=== PATIENT | male | born 2000 | race African-American/Black ===

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

== ENCOUNTER 2019-09-04 20:00 | Emergency (ER) | payer OTHER ==
[~2019-09-04] VITALS: Ht 190.5 cm; Wt 136.1 kg
== END 2019-09-04 22:29 ==
LOC: ED 20:00
DX: S80.01XA Contusion of right knee, initial encounter (principal); I10 Essential (primary) hypertension; W17.89XA Other fall from one level to another, initial encounter; Y93.89 Activity, other specified; Y92.098 Other place in other non-institutional residence as the place of occurrence of the external cause; Y99.8 Other external cause status

== ENCOUNTER 2020-01-15 20:46 | Emergency (ER) | payer OTHER ==
[~2020-01-15] VITALS: Ht 190.5 cm; Wt 136.1 kg
== END 2020-01-15 21:22 | disposition home or self-care (01) ==
LOC: ED 20:46
DX: J06.9 Acute upper respiratory infection, unspecified (principal)

== ENCOUNTER 2021-01-01 05:10 | Emergency (ER) | payer OTHER ==
[2021-01-01] MEDS ORDERED: VIBRAMYCIN100 MG PO (06:00)
== END 2021-01-01 06:03 | disposition home or self-care (01) ==
LOC: ED 05:10
DX: S70.362A Insect bite (nonvenomous), left thigh, initial encounter (principal); I10 Essential (primary) hypertension; F41.9 Anxiety disorder, unspecified; W57.XXXA Bitten or stung by nonvenomous insect and other nonvenomous arthropods, initial encounter; Y93.89 Activity, other specified; Y92.89 Other specified places as the place of occurrence of the external cause; Y99.8 Other external cause status

== ENCOUNTER → 2021-01-03 | Outpatient (CLI) | payer OTHER ==
[~2021-01-03] MED LIST changes: +VIBRAMYCIN100 MG PO
== END | disposition home or self-care (01) ==
LOC: LAB 16:41
PROVIDERS: ATTEND Internal Medicine
DX: R21 Rash and other nonspecific skin eruption (principal)

== ENCOUNTER 2021-08-11 15:40 | Emergency (ER) | payer OTHER ==
[~2021-08-11] VITALS: Wt 117.9 kg
[2021-08-11] MEDS ORDERED: CEPHALEXIN500 M1 PO (16:06)
== END 2021-08-11 16:57 | disposition home or self-care (01) ==
LOC: ED 15:40
DX: S91.332A Puncture wound without foreign body, left foot, initial encounter (principal); W45.0XXA Nail entering through skin, initial encounter; Y93.89 Activity, other specified; Y92.89 Other specified places as the place of occurrence of the external cause; Y99.8 Other external cause status

== ENCOUNTER 2022-03-24 12:52 | Emergency (ER) | payer OTHER ==
[~2022-03-24] VITALS: Ht 190.5 cm; Wt 112.5 kg
[~2022-03-24 12:52] MED LIST changes: +CEPHALEXIN500 M1 PO
[2022-03-24 14:03] LABS: BASO % 0.5 % (0.0-1.0); HEMATOCRIT 44.3 % (42.0-52.0); LYMPH # 2.4 10*3/uL (1.3-4.4); LYMPH % 32.6 % (27.0-41.0); MEAN CELL VOLUME 84.5 fl (80.0-94.0); MEAN CORPUSCULAR HGB 27.9 pg (27.0-31.0); MEAN PLATELET VOLUME 9.9 fl (9.6-12.3); MONO # 0.6 10*3/uL (0.1-1.0); MONO % 8.6 % (3.0-9.0); NEUT # 4.3 10*3/uL (2.3-7.9); PLATELET COUNT AUTOMATED 319 10*3/uL (130-400); RED BLOOD COUNT 5.24 10*6/uL (4.50-5.90); RED CELL DISTRI WIDTH 13.1 % (0-14.5); WHITE BLOOD COUNT 7.4 10*3/uL (4.8-10.8)
[2022-03-24 14:21] LABS: BUN 13 mg/dl (7-24); CHLORIDE 110 mmol/L (98-107); CREATININE 0.87 mg/dL (0.70-1.30); POTASSIUM 3.9 mmol/L (3.5-5.1); SODIUM 140 mmol/L (136-145)
[2022-03-24 14:22] LABS: ALKALINE PHOSPHATASE 62 U/L (45-117); SGOT/AST 7 IU/L (3-35); SGPT/ALT 24 U/L (12-78); TOTAL PROTEIN 7.6 gm/dL (6.4-8.2)
== END 2022-03-24 14:43 | disposition home or self-care (01) ==
LOC: ED 12:52
PROVIDERS: Nurse Practitioner Family
DX: R42 Dizziness and giddiness (principal); F41.9 Anxiety disorder, unspecified

== ENCOUNTER 2022-03-30 18:13 | Emergency (ER) | payer OTHER ==
[~2022-03-30] VITALS: Wt 113.4 kg
[2022-03-30] MEDS ORDERED: ESCITALOPRAM OX10 MG PO (18:49)
[2022-03-30] MEDS ORDERED: ANTIVERT25 M2 PO (20:25)
[2022-03-30] MEDS ORDERED: MELATONIN1 MG PO (20:25)
[2022-03-30] MEDS ORDERED: MELATONIN3 MG PO (20:30)
== END 2022-03-30 20:42 | disposition home or self-care (01) ==
LOC: ED 18:13
DX: R42 Dizziness and giddiness (principal); Z79.899 Other long term (current) drug therapy

== ENCOUNTER 2024-08-27 21:33 | Emergency (ER) | payer OTHER ==
[~2024-08-27] VITALS: Ht 190.5 cm; Wt 97.5 kg
[~2024-08-27 21:33] MED LIST changes: +AMOX-CLAV 875-1 EACH PO; +ANTIVERT25 M2 PO; +CETIRIZINE10 MG PO; +ESCITALOPRAM OX10 MG PO; +FLONASE ALLERG9.9 ML NAS; +MELATONIN1 MG PO; +MELATONIN3 MG PO
[2024-08-27] MEDS ORDERED: ACETAMINOPHEN 325 MG TAB PO ONE (21:50)
== END 2024-08-27 21:57 | disposition home or self-care (01) ==
LOC: ED 21:33
DX: S60.211A Contusion of right wrist, initial encounter (principal); I10 Essential (primary) hypertension; Z79.899 Other long term (current) drug therapy; W22.09XA Striking against other stationary object, initial encounter; Y93.89 Activity, other specified; Y92.89 Other specified places as the place of occurrence of the external cause; Y99.8 Other external cause status